=== PATIENT | female | born 1990 | race Caucasian/White ===

== ENCOUNTER → 2018-08-04 10:58 | Outpatient (CLI) | payer OTHER, SELFPAY ==
[2018-08-04 12:47] LABS: Influenza A and B by PCR Rapid Negative (Negative)
== END ==
PROVIDERS: PCP Nurse Practitioner; Visit Provider Physician Assistant
DX: R05 Cough (principal); R07.0 Pain in throat
CPT/HCPCS: 87070; 87400

== ENCOUNTER 2020-11-29 15:44 | Outpatient (RCR) | payer OTHER, SELFPAY ==
--- NOTE | 2020-11-29 16:45 | PT.OPPOC ---
Physical, Occupational & Speech Therapy At [facility] Current Diagnoses Stiffness of other specified joint, not elsewhere classified (11/29/20) Cervicalgia (11/29/20) Visit Care Team Role Provider Type MALAIKA Michael Attending Provider Non-Staff Primary Care Provider Referring Provider Specialty: Medical Address: [address] [place] [address], [address], [place], [address] Email: Plan Of Care PT-OP-T Assessment and Plan Start: 11/29/20 17:41 Freq: Status: Active Protocol: Document 11/29/20 16:00 DCW (Rec: 11/30/20 10:37 DCW [id number]) Physical Therapy Assessment Rehab Potential Rehabilitation Potential Good Evaluation Complexity Number of Personal Factors/Comorbidities 1-2 Number of Body Systems Impaired 3 Clinical Presentation at Evaluation Stable Impairments Impairments Activity Tolerance,Functional Activities,Functional Mobility ,Pain,ROM,Soft Tissue Mobility ,Strength,Tone Goals Three Impairment Pt limited to 2/25 miles on Elliptical before severe pain [facility]cf Goal (LTG) Pt to tolerate 5 miles on elliptical without increased pain to demonstrate increased activity tolerance and improve ability to participate in her usual physical activities LTG Duration 01/30/21 Two Impairment Pt cervical ROM limited in R lateral flexion and 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 and left rotation to 60? to improve ability to move head while driving and looking for oncoming traffic. LTG Duration 01/30/21 One Impairment Pt does not have an appropriate home exercise program Short Term Goal (STG) Pt to be independent and compliant with an appropriate HEP STG Duration 12/30/20 Assessment Summary Assessment Pt presents with severe tone throughout left cervical musculature, a rotated C4, frequent headaches, decreased cervical mobility, and limited activity tolerance. Pt has had multiple injuries over her lifetime to her cervical spine, and appears to just have a large amount of protective spasming/increased tone causing these headaches and limited mobility. Pt will likely benefit from skilled therapy focusing on STM, flexibility, strengthening, ROM, and increasing exercise tolerance. Physical Therapy Plan Frequency and Duration Frequency of Treatment 1-2x/week Duration of Treatment Two months Plan of Care Start Date 11/29/20 Plan of Care End Date 01/30/21 Therapeutic Interventions Therapeutic Interventions Home Exercise Program,Joint Mobilizations,Manual Therapy, Patient/Caregiver Education, Self-Care/Home Management,Soft Tissue Mobilization,Taping, Therapeutic Activities, Therapeutic Exercises Modalities Cold Pack/Ice Massage,Electric Stimulation,Hot Packs, Ultrasound Next Visit Focus/Plan Next Note Type Treatment Note Next Visit Plan STM, joint mobs, flexibility Plan of Care Dates Plan of Care Start Date 11/29/20 Plan of Care End Date 01/30/21 Electronically Signed by: Joe Solis, PT 11/30/20 1038 Please Sign and Return: I have reviewed this Plan of Care and certify that the skilled therapy services above are required to meet the patient?s needs. Physician Signature Date Printed Name and Credentials Clinical Instructor Signature Printed Name and Credentials
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
== END 2021-03-24 13:19 ==
LOC: PHYS 15:44
PROVIDERS: PCP Nurse Practitioner Family; Referring Provider Nurse Practitioner Family; Visit Provider Nurse Practitioner Family
DX: M54.2 Cervicalgia (principal); M25.69 Stiffness of other specified joint, not elsewhere classified
CPT/HCPCS: 97140; 97161

== ENCOUNTER → 2022-11-03 11:22 | Outpatient (CLI) | payer OTHER, SELFPAY ==
[2022-11-04 14:48] LABS: Candida species Negative (Negative); Gardnerella vaginalis Negative (Negative); Trichomoas vaginalis Negative (Negative)
== END ==
PROVIDERS: PCP Nurse Practitioner Family; Visit Provider Obstetrics & Gynecology
DX: N89.8 Other specified noninflammatory disorders of vagina (principal); R10.2 Pelvic and perineal pain
CPT/HCPCS: 87480; 87510; 87660

== ENCOUNTER 2023-03-19 06:36 | Day surgery (SDC) | payer OTHER, SELFPAY ==
[2023-03-13 10:48] VITALS: BMI 33.1
[2023-03-19] VITALS (21 sets, daily range): BP systolic 84–126; BP diastolic 52–90; PULSE 46–97; RESP 9–23; TEMP 35.7–37; O2SAT 92–100; BMI 33.1
--- NOTE | 2023-03-19 | PATH_ITS ---
[facility] Accession Number: [id number] No. of containers..02 Tissue . 01 Material submitted: . PART A: uterus - UTERUS PART B: fallopian tube - BILATERAL FALLOPIAN TUBES . 01 Diagnosis: A. Uterus, Hysterectomy: Cervix: A few small nabothian cysts. Endometrium: Disordered proliferative. Myometrium: Adenomyosis and multiple leiomyomata. Serosa: No significant pathologic abnormalities. . B. Fallopian Tubes, Bilateral Salpingectomy: Two fimbriated fallopian tubes without significant pathologic abnormality. [facility]V 03/27/2023 1551 Local . 01 Electronically signed: . Kalpana Tabares MD, Pathologist NPI- [id number] . 01 Gross description: . A. The specimen is received in formalin labeled with the patient's name, , and uterus, and consists of an intact uterus (119 grams, 9.8 cm superior to inferior, 6.2 cm medial to lateral, and 4.4 cm anterior to posterior), with attached cervix (3.1 x 3.0 cm), with no adnexa present. . The ectocervix is pink-daigle, smooth, and glistening with a short purple suture located at approximately 11 o'clock with no designation per the requisition. The cervical os is slit like and measures 0.7 cm in diameter. The anterior paracervical margin is inked blue while the posterior paracervical margin is inked black. The serosa is villa-daigle and smooth with a small white well-circumscribed nodule measuring 0.3 cm in greatest dimension located on the right anterior cervix. The endocervical canal has a daigle herringbone mucosa and measures 2.8 cm in length. The endometrial cavity measures 2.7 cm from cornu to cornu, and 5.5 cm in length with red-daigle, velvety endometrium that averages 0.1 cm thick. The myometrium is red-daigle and trabecular measuring up to 2.1 cm thick with multiple small well-circumscribed, white, whorled nodules measuring up to 0.4 cm in greatest dimension with no hemorrhage or necrosis identified. . Hr Receptionist sections are submitted as follows: A1: Anterior cervix. A2: Posterior cervix. A3: Anterior full thickness section. A4: Posterior full thickness section and nodule. A5: Serosa. A6: Nodules. . B. Received in formalin labeled with the patient's name, , and bilateral fallopian tubes, and consists of two unoriented, fimbriated fallopian tubes measuring 3.9 x 0.6 cm and 4.3 x 0.7 cm. Both tubes have violaceous smooth serosa with no cystic structures identified. Sectioning reveals unremarkable stellate lumen. . Hr Receptionist sections to include one-half of bisected fimbriae and cross-sections are submitted as follows: B1: Longer fallopian tube. B2: [place] fallopian tube. ([id number]) /[facility] 03/20/2023 0933 Local . 01 Pathologist provided ICD-10: D25.9 . 01 CPT . 741399, [id number] Specimen Comment: A courtesy copy of this report has been sent to [phone] Performed at: 01 [facility] [address] [place] [address], [place], [place] [id number] MD Chaz Wick MD Phone: [phone]
[2023-03-19] MEDS: LACTATED RINGERS 1,000 ML 42 ML IV ×2 (07:13→10:30)
[2023-03-19] MEDS: ACETAMINOPHEN 325 MG TABLET 975 MG PO (07:13)
--- NOTE | 2023-03-19 07:47 | PM.PREOP ---
Pre-operative Note COVID-19 COVID-19 status: Not tested Interval Note History & Physical reviewed/Exam performed by Physician: Yes Changes to H&P: No
[2023-03-19] MEDS: CEFAZOLIN 2 GM/100 ML PREMIX 100 ML IV (08:00)
--- NOTE | 2023-03-19 08:33 | SUR.OPER ---
Lithotomy on padded OR bed. [place] Pad Positioner under torso. Head on pillow, arms padded and tucked at sides. Legs secured in padded yellow fins stirrups.
[2023-03-19] MEDS: ROPIVACAINE 0.2% PF 2 MG/ML 10ML AMP 20 ML INJ (08:38)
[2023-03-19] MEDS: BUPIVACAINE 0.5% (PF) 30 ML, EPINEPHrine 0.15 MG INJ (08:39)
--- NOTE | 2023-03-19 09:53 | PM.GYNOP.1 ---
Operative Date/Time/Diagnoses Date of procedure: 03/19/23 Time of procedure: 08:10 Pre-op diagnosis: Menometrorrhagia Adenomyosis (presumptive diagnosis) Post-op diagnosis: other (Same as above; minimal pelvic peritoneal endometriosis) Procedure & Clinicians Procedure: Procedures Operation Date: 03/19/23 07:45 Actual Procedure Side Surgeon p Laparoscopic Total Hysterectomy with bilateral salpingectomy s Fulguration of pelvic peritoneal endometriosis Eric Ross MD Indications: Lucinda is a 32-year-old para 2, LMP starting 02/11/2023 who has been experiencing periods every 2 weeks for at least last 6 months. Attempts at regulation of her cycles with luteal phase Provera over the last few months have not been effective. Her bleeding continues to be extremely heavy, occurring twice monthly, associated with passage of large clots, disabling pelvic pain, and with each episode of bleeding significant right sided pelvic pain which has been consistently localized to the same area with every episode of bleeding. Patient has had a prior tubal ligation. Patient has used oral contraceptives in the past but had to discontinue use due to side-effects. Patient's similarly has tried Depo-Provera with the same result. The patient had a Mirena IUD placed in the past which became imbedded and required removal. Patient would like definitive therapy so that she can live her life without continuous disruption because of either pain and/or bleeding. Patient had a pelvic ultrasound performed at [facility] back in September 2022 which showed the uterus to be anteverted and normal in size measuring 9.2 x 4.4 x 5.6 cm. The myometrium was described as heterogenous. The endometrial stripe measures 18 mm in combined thickness with no abnormal vascularity seen along the endometrial stripe. The right ovary measures 3.3 x 2.7 x 3.0 cm with a calculated ovarian volume of 14.1 cc. Two simple appearing cysts can be seen within the right ovary that measure up to 1.5 cm in up to 1.8 cm respectively. The left ovary measures 3.2 x 2.1 x 2.5 cm with a calculated ovarian volume of 8.6 cm. The left ovary demonstrates a complex cyst that measures up to 1.9 cm. Less than 12 follicles were seen in each ovary and no adnexal masses were noted. There were no cystic lesions measuring greater than 3 cm. No pathological free abdominal or pelvic fluid was seen. Pap and EMbx performed in 02/2023 were negative/negative but inadequate for full assessment of the endometrium. The patient would appear to have run out of medical options for treatment of her menometrorrhagia which has resulted in anemia and significant disruption in her life. She is tried oral contraceptives, Depo-Provera, Mirena IUD, and cyclic oral progestin therapy all without success or benefit. Surgical options would include hysteroscopy with possible biopsies, dilation curettage of the uterus, and endometrial ablation. The heterogenous nature of the patient's myometrium however suggests the presence of adenomyosis and would likely contribute to her higher risk of failure to benefit the patient and also place the patient at higher risk of post endometrial ablation syndrome. Since the patient can not be guaranteed success from an ablation procedure, she does not wish to consider that but instead wishes to proceed with total laparoscopic hysterectomy and bilateral salpingectomy. An additional benefit of this approach would be due evaluate the pelvis for potential causes of her persistent right sided pelvic pain with episodes of bleeding. After consideration of all options the patient expresses a desire to move forward with TLH and bilateral salpingectomy. She presents today for her scheduled surgery. Surgeon: Eric Ross Medical Photographer: May Robertson Anesthesia Type: General Operative Notes Findings: Uterus is upper limits of normal size and diffusely enlarged. Consistency of the uterus is boggy. Both fallopian tubes demonstrates changes consistent with prior tubal ligation. Both ovaries are normal in size and appearance. The anterior cul-de-sac is unremarkable. In the posterior cul-de-sac there is a small area in the right ovarian fossa which is consistent with scarred endometriosis. There are also 3 small super facial implants in the posterior cul-de-sac on the left side lateral to the rectosigmoid. All of these areas of suspected endometriosis were destroyed with bipolar current. No other abnormalities were noted in the pelvis or abdomen as visualized laparoscopically. Closure Type: primary Specimen(s): left tube, right tube and uterus Applied: catheter Estimated blood loss (mL): 50 Blood products transfused: none Procedure in detail: With the patient in modified dorsal lithotomy position preparations were made by prepping and draping the patient in usual manner for vaginal surgery and insertion of Del Valle catheter. A pre-surgical time-out was then taken in accordance with [facility] policy. A bivalve speculum was then placed in the vagina and the cervix visualized. The anterior lip of the cervix was then grasped with a single-tooth tenaculum. The uterus was sounded to 9 cm, the endocervical canal dilated slightly, and a VCare uterine manipulator with a medium colpotomy cup was placed. The umbilicus was then infiltrated with 0.5% Marcaine with epinephrine. A 1 cm umbilical incision was made transversely and a Veress needle was used to insufflate the abdominal cavity with carbon dioxide. Once the abdomen was appropriately insufflated, a 5 mm trocar and sleeve were then placed through the umbilical incision. The scope was placed through the trocar and the initial assessment of the intra-abdominal contents carried out. A 2nd and 3rd 5 mm port was then placed 1st in the right mid quadrant from then the left mid quadrant by infiltration of the skin and subcutaneous tissues, a 1 cm transverse incision and insertion of the 5 mm bladeless port. Using a 3 puncture technique, the abdomen and pelvis were inspected laparoscopy and photographically documented. Uterus is mobilized with the VCare manipulator and attention turned to the left adnexa. The distal tube was then grasped and the fimbria varicose divided after coagulation with the PowerSeal device. The dissection was then carried out toward the cornua and the fallopian tube amputated. The tube was removed through a 5 mm port and dissection was then carried down using the PowerSeal device so as to divide the utero-ovarian ligament and the round ligament with blunt and sharp dissection of the broad down to the level of the uterine artery. The uterine artery was then skeletonized after development of a bladder flap, coagulated, and divided. Once hemostasis was assured on the left side attention was turned to the right and the tube, utero-ovarian ligament, round ligament, and broad ligament were dissected in a fashion exactly the same as it had been on the left. The right uterine artery was then visualized after skeletonization and coagulated and divided. The uterus was seen to gallito after coagulation of both your arteries and the cup was identified through the vaginal muscularis at its insertion with the body of the cervix. Circumferential excision of the vaginal cup was accomplished without difficulty using monopolar current and the uterus mobilized. The uterus was then removed through the vagina and the vaginal cuff closed [id number] with a series of 0 Vicryl [id number] stitches. Hemostasis was excellent, the abdomen was re-insufflated, and the pelvis inspected laparoscopically. The areas of suspected endometriosis lateral to the rectosigmoid on the left and in the ovarian fossa on the right were then destroyed with judicious use of bipolar current. The pelvis was inspected for any abnormality or bleeding, and the ureters were each seen to be peristalsing freely. With complete hemostasis assured, the pneumoperitoneum was vented and the ports removed. All of the 5 mm ports were then closed with 4-0 Monocryl on the skin using inverted interrupted sutures. Skin glue was placed and after the glue was dried, an appropriate dressing was applied. The case was then terminated, the patient awakened, and then transferred to PACU after having tolerated the procedure well. Complications: none Post-operative Condition: stable Disposition: PACU Plan for aftercare: Recovery in ambulatory surgery in discharge home later today if pain is under control and she is tolerating oral intake well.
[2023-03-19] MEDS: ONDANSETRON 4 MG/2 ML INJ IV (10:07)
[2023-03-19] MEDS: PROMETHAZINE 25 MG TABLET PO (10:14)
[2023-03-19] MEDS: SCOPOLAMINE 1 PATCH TOP (10:15)
[2023-03-19] MEDS: HYDROMORPHONE 1 MG INJ IV ×2 (10:18→10:26)
[2023-03-19] MEDS: METOCLOPRAMIDE 10 MG/2 ML INJ IV (10:35)
[2023-03-19] MEDS: OXYCODONE IR 5 MG TABLET PO ×2 (10:44→13:32)
--- NOTE | 2023-03-19 10:53 | SUR.PHASEI ---
Patient's HR in the 40-50s. BP and HR discussed with Dr. King. Order pending.
[2023-03-19] MEDS: GLYCOPYRROLATE 0.4 MG/2 ML VIAL 0.2 MG IV (10:56)
--- NOTE | 2023-03-19 11:07 | SUR.PHASEI ---
Report called to Lito in L&D.
--- NOTE | 2023-03-19 11:34 | SUR.PHASEI ---
Patient transferred to L&D. Report given to Lito. VS stable. Continuous pulse ox placed. IV and wright patent. Dressings CDI. Carolina pad CDI.
--- NOTE | 2023-03-19 12:00 | PC.NURSE ---
All three abdominal dressing clean dry and intact
--- NOTE | 2023-03-19 13:00 | PC.NURSE ---
all three abdominal dressing clean dry and intact
[2023-03-19] MEDS: ACETAMINOPHEN 325 MG TABLET 650 MG PO ×2 (13:16→19:10)
[2023-03-19] MEDS: LACTATED RINGERS 1,000 ML 100 ML IV (13:34)
--- NOTE | 2023-03-19 13:45 | PC.NURSE ---
1325: Pts pain/nausea uncontrolled w/ current medication regimen. New orders received from Dr. Ross to increase Oxycodone dose to 10mg Q 4hrs. Zofran increased to Q 4hrs from Q 6hrs. Pt is also complaining about the bed causing her more discomfort. Attempted to turn the bed into sleep mode, but unable to. Offered to power off the bed, but pt declined. Ice pack to pts abdomen. Call light w/in reach. Will reassess pain w/in the hour.
--- NOTE | 2023-03-19 15:00 | PC.NURSE ---
all three abdominal dressings clean dry and intact
[2023-03-19] MEDS: KETOROLAC 30 MG/ML VIAL IV ×2 (15:32→21:25)
--- NOTE | 2023-03-19 15:56 | PC.NURSE ---
Pt sitting up in bed. Tolerating clear liquids , pain decreased and better controlled with increased pain medication regimen.
--- NOTE | 2023-03-19 16:00 | PC.NURSE ---
all three abdominal dressing clean dry and intact
[2023-03-19] MEDS: OXYCODONE IR 10 MG TABLET PO ×2 (17:22→21:23)
--- NOTE | 2023-03-19 17:30 | PC.NURSE ---
got pt up to ambulate to bathroom, where wright catheter was removed. Scant amount of vaginal bleeding noted on jimmie pad. Pt is c/o gas pain and ambulated for a few minutes in room. She tolerated activity well. Helped pt back to bed, ice pack given for abd pain. Call light w/in reach
[2023-03-19] MEDS: SPIRONOLACTONE 25 MG TABLET 50 MG PO (21:24)
[2023-03-19] MEDS: lisinopriL 10 MG TABLET PO (21:24)
[2023-03-19] MEDS: TRAZODONE 50 MG TABLET PO (21:25)
[2023-03-19] MEDS: PROPRANOLOL 10 MG TABLET 20 MG PO (21:25)
[2023-03-20] MEDS: ACETAMINOPHEN 325 MG TABLET 650 MG PO ×2 (01:43→10:02)
[2023-03-20] MEDS: OXYCODONE IR 10 MG TABLET PO ×3 (01:44→10:02)
[2023-03-20 01:45] VITALS: BP 111/63; PULSE 101; RESP 22; TEMP 36.8; O2SAT 98
[2023-03-20 05:30] VITALS: BP 118/73; PULSE 88; RESP 18; TEMP 36.6; O2SAT 98
[2023-03-20] MEDS: KETOROLAC 30 MG/ML VIAL IV (05:53)
[2023-03-20] MEDS: PANTOPRAZOLE DR 20 MG TABLET PO (06:09)
[2023-03-20 06:37] LABS: Add Manual Diff / Slide Review NO; Basophils Absolute Auto 100 /uL (0-100); Basophils Percent Auto 0.7 % (0-2); Eosinophils Absolute Auto 0 /uL (0-450); Eosinophils Percent Auto 0.1 % (2-4); Hematocrit 33.5 % (36-46); Hemoglobin 11.1 g/dL (12.0-16.0); Lymphocytes Absolute Auto 1700 /uL (1100-4500); Mean Corpuscular HGB Conc 33.2 % (30-36); Mean Corpuscular Hemoglobin 29.2 PG (26-34); Mean Corpuscular Volume 87.8 fL (80-100); Monocytes Absolute Auto 1000 /uL (0-900); Monocytes Percent Auto 6.9 % (3-14); Neutrophils Absolute Auto 11500 /uL (1500-7000); Neutrophils Percent Auto 80.3 % (50-75); Platelet Count 452 X10^3/uL (150-400); Red Blood Cell Count 3.82 X10^6/uL (4.0-5.2); Red Cell Distribution Width 15.4 % (11.6-14.8); White Blood Cell Count 14.3 X10^3/uL (4.5-11.0)
--- NOTE | 2023-03-20 08:08 | PM.DS.1 ---
History of Present Illness History of Present Illness Date Patient Seen: 03/20/23 Time Patient Seen: 08:08 Chief complaint: Menometrorrhagia Narrative: Lucinda is a 32-year-old para 2, LMP starting 02/11/2023 who has been experiencing periods every 2 weeks for at least last 6 months. Attempts at regulation of her cycles with luteal phase Provera over the last few months have not been effective. Her bleeding continues to be extremely heavy, occurring twice monthly, associated with passage of large clots, disabling pelvic pain, and with each episode of bleeding significant right sided pelvic pain which has been consistently localized to the same area with every episode of bleeding. Patient has had a prior tubal ligation. Patient has used oral contraceptives in the past but had to discontinue use due to side-effects. Patient's similarly has tried Depo-Provera with the same result. The patient had a Mirena IUD placed in the past which became imbedded and required removal. Patient would like definitive therapy so that she can live her life without continuous disruption because of either pain and/or bleeding. Patient had a pelvic ultrasound performed at [facility] in September 2022 which showed the uterus to be anteverted and normal in size measuring 9.2 x 4.4 x 5.6 cm. The myometrium was described as heterogenous. The endometrial stripe measures 18 mm in combined thickness with no abnormal vascularity seen along the endometrial stripe. The right ovary measures 3.3 x 2.7 x 3.0 cm with a calculated ovarian volume of 14.1 cc. Two simple appearing cysts can be seen within the right ovary that measure up to 1.5 cm in up to 1.8 cm respectively. The left ovary measures 3.2 x 2.1 x 2.5 cm with a calculated ovarian volume of 8.6 cm. The left ovary demonstrates a complex cyst that measures up to 1.9 cm. Less than 12 follicles were seen in each ovary and no adnexal masses were noted. There were no cystic lesions measuring greater than 3 cm. No pathological free abdominal or pelvic fluid was seen. Pap and EMbx performed in 02/2023 were negative/negative but inadequate for full assessment of the endometrium. The patient would appear to have run out of medical options for treatment of her menometrorrhagia which has resulted in anemia and significant disruption in her life. She is tried oral contraceptives, Depo-Provera, Mirena IUD, and cyclic oral progestin therapy all without success or benefit. Surgical options would include hysteroscopy with possible biopsies, dilation curettage of the uterus, and endometrial ablation. The heterogenous nature of the patient's myometrium however suggests the presence of adenomyosis and would likely contribute to her higher risk of failure to benefit the patient and also place the patient at higher risk of post endometrial ablation syndrome. Since the patient can not be guaranteed success from an ablation procedure, she does not wish to consider that but instead wishes to proceed with total laparoscopic hysterectomy and bilateral salpingectomy. An additional benefit of this approach would be due evaluate the pelvis for potential causes of her persistent right sided pelvic pain with episodes of bleeding. After consideration of all options the patient expresses a desire to move forward with TLH and bilateral salpingectomy. She is admitted now for her scheduled surgery. Discharge Providers Provider Date of admission: 03/19/2023 Discharge Date: 03/20/23 Primary care physician: MALAIKA Alegre Discharge provider: Eric Ross MD Summary Hospital Course Discharge Diagnosis: Menometrorrhagia Adenomyosis (presumptive diagnosis) Minimal pelvic endometriosis Status post total laparoscopic hysterectomy with bilateral salpingectomy Hospital Course: Lucinda was admitted on the morning of 03/19/2023 and underwent an uneventful total laparoscopic hysterectomy with bilateral salpingectomy at that time. Full details of the procedure well summarized on my operative note of that date. Following surgery the patient has done extremely well with prompt return of bowel and bladder function, she is ambulating independently, tolerating regular diet, and her pain is well-controlled with oral pain medications. She will be discharged at this time to home in an afebrile normotensive condition after counseling regarding precautionary symptoms, limitations of activity, medications, and plans for follow-up which will be in 2 weeks. Medications at discharge will include resumption of all pre operative medications and oxycodone 5 mg every 4-6 hours as needed for pain, dispense 20 with no refills, and Cipro 500 mg p.o. b.i.d. x5 days for UTI prophylaxis following catheterization. She will also resume use of naproxen 500 mg p.o. every 8 hours as needed for additional pain relief. Status at Discharge Cognitive/behavioral status at discharge: oriented Functional status at discharge: independent ambulation Overall status at discharge: patient is progressing back to baseline Time Spent with Patient Time spent: Less than 30 minutes Exam Vital Signs (past 8 hours): - 03/20/23 01:45 03/20/23 05:30 Temperature 98.2 F 97.9 F Pulse Rate 101 H 88 Respiratory Rate 22 18 Blood Pressure 111/63 118/73 Pulse Oximetry 98 98 Oxygen Delivery Method Room Air Oxygen Flow Rate 2 Const General: cooperative and comfortable Nutritional Appearance: average body habitus Orientation: alert and oriented x3 HENMT Head: normal to inspection, atraumatic and abrasion Ears: hearing grossly normal bilaterally Face and sinus: face symmetric Eyes General: appearance normal, both eyes and all related structures Conjunctivae: conjunctivae normal Sclera: sclerae normal EOM: EOM intact bilaterally Neck Neck: normal visual inspection Resp Effort & Inspection: normal respiratory effort and able to speak in complete sentences Auscultation: clear to auscultation bilaterally Cardio Rate: regular rate Rhythm: regular rhythm Heart Sounds: S1 normal, S2 normal and no murmurs GI Inspection: normal to inspection and incision (Surgical dressings clean and dry) Palpation: soft, no hepatosplenomegaly and tender (Mild, diffuse postsurgical tenderness) External Female Exam: other (No significant bleeding noted) Extrem General: no calf tenderness Psych Appearance: grossly normal Mental Status: mental status grossly normal Speech and Movement: speech and movement normal Mood: congruent mood Affect: normal affect Attitude: cooperative Thought Process: normal Thought Content: normal Judgment: judgment good Objective Labs 03/20/23 06:22 Labs: Laboratory Results - last 24 hr 03/20/23 06:22 WBC 14.3 H RBC 3.82 L Hgb 11.1 L Hct 33.5 L MCV 87.8 MCH 29.2 MCHC 33.2 RDW 15.4 H Plt Count 452 H Neut % (Auto) 80.3 H Lymph % (Auto) 12.0 L Laporte % (Auto) 6.9 Eos % (Auto) 0.1 L Baso % (Auto) 0.7 Neut # (Auto) 68255 H Lymph # (Auto) 1700 [place] # (Auto) 1000 H Eos # (Auto) 0 Baso # (Auto) 100 PFSH Medical History (Updated 02/16/23 @ 17:23 by Eric Ross MD) Eczema Acne Rheumatoid arthritis Migraines Fractures Ankle pain Chicken pox (~1995) Anemia Painful menstrual periods Ovarian cyst Irregular menstrual cycle Hemorrhoid (~2010) Anxiety Heavy menstrual bleeding Surgical History (Updated 11/07/22 @ 20:54 by Kirsty Chavez) Anesthesia History of surgery (~2014) History of foot surgery (~2016) History of gastrointestinal surgery (~2011) History of abdominal surgery (~2012) Family History (Updated 11/07/22 @ 20:57 by Kirsty Chavez) Mother Arthritis Depression Anxiety Hypertension Hyperlipidemia Mental health problem Grandfather History of heart disease Grandmother Cancer History of heart disease Hyperlipidemia Hypertension Mental health problem Social History household members: spouse and children Smoking Status: Never smoker alcohol intake: current Discharge Assessment & Plan Assessment and Plan Assessment: Menometrorrhagia Adenomyosis (presumptive diagnosis) Minimal pelvic endometriosis Status post total laparoscopic hysterectomy with bilateral salpingectomy Plan of Treatment: Routine postoperative care with follow-up scheduled for 2 weeks postop. Discharge Plan Discharge Plan Patient Disposition: Home Provider Discharge Comment: Please review the written instructions you received when you were discharged from the hospital. Your follow-up appointment is scheduled for 2-3 weeks after your surgery and I look forward to seeing you then. If however in the meanwhile, you have any issues, concerns, or questions, please contact me either through the office phone at [phone], or via the patient portal. Discharge orders & Medications Discharge Orders: Discharge (Order); Ordered 03/20/23 Ordered By: Eric Ross Prescriptions: New oxycodone 5 mg Tablet 5 mg PO Q4-6H PRN (Reason: Pain, Moderate (4-6)) Qty: 20 0RF ciprofloxacin HCl [Cipro] 500 mg tablet 500 mg PO BID 5 Days Qty: 10 0RF Continued benzonatate 100 mg capsule 100 mg PO TID PRN (Reason: cough) Qty: 30 0RF codeine-guaifenesin [Cheratussin AC] 10-100 mg/5 mL liquid 10 ml PO Q4-6H PRN (Reason: cough limiting sleep) Qty: 120 0RF lisinopril 10 mg tablet 10 mg PO DAILY omeprazole 10 mg capsule,delayed release(DR/EC) 10 mg PO DAILY propranolol 40 mg tablet 20 mg PO BID trazodone 50 mg tablet 25 mg PO DAILY hydroxyzine HCl 25 mg tablet 25 mg PO BEDTIME spironolactone 50 mg tablet 50 mg PO DAILY doxycycline hyclate 20 mg tablet 20 mg PO BID loratadine [Claritin] 10 mg tablet 10 mg PO DAILY fexofenadine [Leatha Allergy] 180 mg tablet 180 mg PO DAILY ondansetron HCl 8 mg tablet 8 mg PO Q8H PRN (Reason: nausea and vomiting) Qty: 20 2RF naproxen 500 mg tablet 500 mg PO Q8H PRN (Reason: pain) Qty: 30 12RF Rx Instructions: For best effect, start medication 1-2 days prior to expected onset of period Follow up/Referrals: Nora Castillo ARNP [Primary Care Provider] - Eric Ross MD [Physician] - Diet/Activity/Treatments Diet: Diet as Tolerated Activity: As tolerated Other treatments: [id number] Tylenol and/or ibuprofen may be used for additional pain relief. [id number] stool softeners and/or MiraLax may be used as needed for constipation. Skin/Wound/Dressing Care Report to your healthcare provider any signs of infection, such as:: chills, fever, increased pain, unusual drainage and unusual redness Visit Report/Discharge Packet Instructions: DI for Hysterectomy, DI for Laparoscopy, DI for Prescription Opioid Use Stand Alone Forms: Surgery Discharge Print Language: Romanian Discharge Data Primary Care Provider: Nora Castillo Attending Provider: Eric Ross
[2023-03-20] MEDS: PROPRANOLOL 10 MG TABLET 20 MG PO (08:34)
[2023-03-20] MEDS: LORATADINE 10 MG TABLET PO (08:34)
[2023-03-20 08:41] VITALS: BP 121/72; PULSE 100; RESP 20; TEMP 36.6; O2SAT 98
[2023-03-20] MEDS: ONDANSETRON 4 MG ODT SL (10:18)
== END 2023-03-20 10:23 | disposition home or self-care (01) ==
LOC: OR 06:37 → AC 09:44 → LABOR 11:37
PROVIDERS: PCP Nurse Practitioner; Referring Provider Obstetrics & Gynecology; Visit Provider Obstetrics & Gynecology
PROC: 0UT94ZZ Resection of Uterus, Percutaneous Endoscopic Approach (ICD-10-PCS; CPT 58571; principal; 2023-03-19 07:45)
DX: N92.1 Excessive and frequent menstruation with irregular cycle (principal); N80.329 Endometriosis of the posterior cul-de-sac, unspecified depth; N88.8 Other specified noninflammatory disorders of cervix uteri; N80.03 Adenomyosis of the uterus; D25.9 Leiomyoma of uterus, unspecified
CPT/HCPCS: 58571; 58662; 36415; 36592; 85025; J0171; J0330; J0690; J1100; J1170; J1885; J2250; J2405; J2704; J2765; J2795; J3010

== ENCOUNTER 2023-03-23 12:55 | Emergency (ER) | payer OTHER, SELFPAY ==
[2023-03-23 12:59] VITALS: BP 152/99; PULSE 91; O2SAT 98
[2023-03-23 13:00] VITALS: PULSE 92; O2SAT 100
[2023-03-23 13:04] VITALS: BP 152/99; PULSE 88; RESP 16; TEMP 36.6; O2SAT 97; BMI 37.8
--- NOTE | 2023-03-23 13:13 | ED.SOB ---
HPI - SOB/Dyspnea <Shaheed Peck PA-C - Last Filed: 03/23/23 14:29> General Chief Complaint: Shortness of Breath/Dyspnea Stated Complaint: dr ref/SOB/Hurts to breathe/post hysterectomy Time Seen by Provider: 03/23/23 13:12 History of Present Illness HPI Narrative: This is a 32-year-old female presents emergency department due to 4 days of chest pain after having a hysterectomy 4 days ago. She states that she was told the hysterectomy went well without any complications. She states that the chest pain is worse with deep breathing. Denies any fevers, nausea, vomiting, abdominal pain, or any other concerning signs or symptoms. She has not had this in the past. She was not feel acutely short of breath but does state that it hurts more when she takes a deep breath. No cardiac history in the past. Related Data Home Medications Medication Instructions Recorded Confirmed doxycycline hyclate 20 mg tablet 20 mg PO BID 11/03/22 03/19/23 fexofenadine 180 mg tablet 180 mg PO DAILY 11/03/22 03/19/23 (Leatha Allergy) hydroxyzine HCl 25 mg tablet 25 mg PO BEDTIME 11/03/22 03/19/23 loratadine 10 mg tablet (Claritin) 10 mg PO DAILY 11/03/22 03/19/23 omeprazole 10 mg capsule,delayed 10 mg PO DAILY 11/03/22 03/19/23 release propranolol 40 mg tablet 20 mg PO BID 11/03/22 03/19/23 spironolactone 50 mg tablet 50 mg PO DAILY 11/03/22 03/19/23 trazodone 50 mg tablet 25 mg PO DAILY 11/03/22 03/19/23 lisinopril 10 mg tablet 10 mg PO DAILY 02/27/23 03/19/23 Previous Rx's Medication Instructions Recorded benzonatate 100 mg capsule 100 mg PO TID PRN cough #30 caps 08/04/18 codeine 10 mg-guaifenesin 100 mg/5 10 ml PO Q4-6H PRN cough limiting 08/04/18 mL oral liquid (Cheratussin AC) sleep #120 mL naproxen 500 mg tablet 500 mg PO Q8H PRN pain #30 tabs 02/16/23 ondansetron HCl 8 mg tablet 8 mg PO Q8H PRN nausea and 02/16/23 vomiting #20 tabs ciprofloxacin HCl 500 mg tablet 500 mg PO BID 5 days #10 tabs 03/20/23 (Cipro) oxycodone 5 mg tablet 5 mg PO Q4-6H PRN Pain, Moderate 03/20/23 (4-6) #20 tabs pantoprazole 20 mg tablet,delayed 20 mg PO BID #28 tabs 03/23/23 release Allergies Allergy/AdvReac Type Severity Reaction Status Date / Time adhesive tape AdvReac Mild Verified 03/19/23 06:50 Review of Systems <Shaheed Peck PA-C - Last Filed: 03/23/23 14:29> Review of Systems Narrative: GENERAL: Denies chills, fatigue, malaise, fever, sweats. HEENT: Denies sinus pain, ear pain, sore throat, difficulty swallowing, dizziness. RESPIRATORY: Reports chest pain, Denies dyspnea, cough, wheezing, hemoptysis, sputum. CARDIOVASCULAR: Denies , palpitations, orthopnea, edema, GASTROINTESTINAL: Denies nausea, vomiting, abdominal pain, diarrhea, constipation, melena. : Denies dysuria, frequency, incontinence, hematuria, urinary retention. MUSCULOSKELETAL: denies weakness, joint pain, or bony pain SKIN: Denies rash, skin lesions, or other NEUROLOGIC: Denies weakness, headache, numbness, change in speech, confusion, seizures, incoordination. PSYCHIATRIC: No concerning psychosocial issues. 12 point review of systems is negative except for those stated above Patient History <Shaheed Peck PA-C - Last Filed: 03/23/23 14:29> Medical History (Updated 03/23/23 @ 14:27 by Shaheed Peck PA-C) Eczema Acne Rheumatoid arthritis Migraines Fractures Ankle pain Chicken pox (~1995) Anemia Painful menstrual periods Ovarian cyst Irregular menstrual cycle Hemorrhoid (~2010) Anxiety Heavy menstrual bleeding Surgical History (Updated 11/07/22 @ 20:54 by Kirsty Chavez) Anesthesia History of surgery (~2014) History of foot surgery (~2016) History of gastrointestinal surgery (~2011) History of abdominal surgery (~2012) Family History (Updated 11/07/22 @ 20:57 by Kirsty Chavez) Mother Arthritis Depression Anxiety Hypertension Hyperlipidemia Mental health problem Grandfather History of heart disease Grandmother Cancer History of heart disease Hyperlipidemia Hypertension Mental health problem Social History household members: spouse and children Smoking Status: Never smoker alcohol intake: current Smoking Status: Never smoker alcohol intake frequency: holidays/special occasions only Substance Use Type: does not use Exam <Shaheed Peck PA-C - Last Filed: 03/23/23 14:29> Narrative Exam Narrative: GENERAL: Well-developed patient, in mild distress. HEAD: Atraumatic. Normocephalic. EYES: Pupils equal round and reactive. Extraocular motions intact. No scleral icterus. No injection or drainage. ENT: Nose without bleeding, purulent drainage. Throat without erythema, tonsillar hypertrophy or exudate. Airway patent. NECK: Trachea midline. Non tender CARDIOVASCULAR: Regular rate and rhythm without murmurs, gallops, or rubs. RESPIRATORY: Clear to auscultation. Breath sounds equal bilaterally. No wheezes, rales, or rhonchi. GASTROINTESTINAL: Abdomen soft, non-tender, nondistended. Surgical incisions with bandages in place, no spreading erythema or purulent drainage. EXTREMITIES: No edema or joint tenderness. BACK: Nontender without deformity or crepitance. No flank tenderness. NEURO: AOx3. SKIN: No rash or erythema of visible areas Initial Vital Signs Initial Vital Signs: Vital Signs Pulse Rate 91 H 03/23/23 12:59 Blood Pressure 152/99 H 03/23/23 12:59 Pulse Oximetry 98 03/23/23 12:59 <Cathie Brady MD - Last Filed: 03/23/23 15:48> Initial Vital Signs Initial Vital Signs: Vital Signs Pulse Rate 91 H 03/23/23 12:59 Blood Pressure 152/99 H 03/23/23 12:59 Pulse Oximetry 98 03/23/23 12:59 Course <Shaheed Peck PA-C - Last Filed: 03/23/23 14:29> Orders Ordered: ED Orders 03/23/23 13:15 Urinalysis and Microscopic Stat 03/23/23 13:20 XR chest 1V Stat Complete Blood Count AUTO DIFF Stat Comprehensive Metabolic Panel Stat Lipase Stat Troponin & CK Cardiac Panel Stat 03/23/23 13:21 CT angio chest PE protocol Stat 03/23/23 14:05 EKG-12 Lead Stat Discontinued Medications Acetaminophen (Acetaminophen 325 Mg Tablet) 650 mg PO NOW ONE Stop: 03/23/23 14:11 Last Admin: 03/23/23 14:18 Dose: 650 mg Documented By: CHRIS Sodium Chloride (Normal Saline 0.9%) 1,000 mls @ 150 mls/hr IV CONT FRANK Last Admin: 03/23/23 13:46 Dose: Not Given Documented By: CHRIS Vital Signs Vital signs: Vital Signs - 8 hr 03/23/23 12:59 03/23/23 12:59 03/23/23 13:00 Temperature Pulse Rate 91 H 92 H Respiratory Rate Blood Pressure 152/99 H Pulse Oximetry 98 100 Oxygen Delivery Method 03/23/23 13:04 03/23/23 13:14 03/23/23 13:14 Temperature 97.8 F Pulse Rate 88 87 Respiratory Rate 16 12 Blood Pressure 152/99 H 148/82 H Pulse Oximetry 97 96 Oxygen Delivery Method Room Air 03/23/23 13:30 03/23/23 13:30 03/23/23 14:00 Temperature Pulse Rate 84 85 Respiratory Rate 20 15 Blood Pressure 134/89 Pulse Oximetry 97 99 Oxygen Delivery Method <Cathie Brady MD - Last Filed: 03/23/23 15:48> Orders Ordered: ED Orders 03/23/23 13:15 Urinalysis and Microscopic Stat 03/23/23 13:20 XR chest 1V Stat Complete Blood Count AUTO DIFF Stat Comprehensive Metabolic Panel Stat Lipase Stat Troponin & CK Cardiac Panel Stat 03/23/23 13:21 CT angio chest PE protocol Stat 03/23/23 14:05 EKG-12 Lead Stat Discontinued Medications Acetaminophen (Acetaminophen 325 Mg Tablet) 650 mg PO NOW ONE Stop: 03/23/23 14:11 Last Admin: 03/23/23 14:18 Dose: 650 mg Documented By: CHRIS Sodium Chloride (Normal Saline 0.9%) 1,000 mls @ 150 mls/hr IV CONT FRANK Last Admin: 03/23/23 13:46 Dose: Not Given Documented By: CHRIS Vital Signs Vital signs: Vital Signs - 8 hr 03/23/23 12:59 03/23/23 12:59 03/23/23 13:00 Temperature Pulse Rate 91 H 92 H Respiratory Rate Blood Pressure 152/99 H Pulse Oximetry 98 100 Oxygen Delivery Method 03/23/23 13:04 03/23/23 13:14 03/23/23 13:14 Temperature 97.8 F Pulse Rate 88 87 Respiratory Rate 16 12 Blood Pressure 152/99 H 148/82 H Pulse Oximetry 97 96 Oxygen Delivery Method Room Air 03/23/23 13:30 03/23/23 13:30 03/23/23 14:00 Temperature Pulse Rate 84 85 Respiratory Rate 20 15 Blood Pressure 134/89 Pulse Oximetry 97 99 Oxygen Delivery Method MDM - SOB/Dyspnea <Shaheed Peck PA-C - Last Filed: 03/23/23 14:29> Lab Data 03/23/23 13:20 03/23/23 13:20 Labs: Lab Results 03/23/23 03/23/23 Range/Units 13:15 13:20 WBC 9.7 (4.5-11.0) X10^3/uL RBC 4.55 (4.0-5.2) X10^6/uL Hgb 13.4 (12.0-16.0) g/dL Hct 39.6 (36-46) % MCV 87.0 (80-100) fL MCH 29.4 (26-34) PG MCHC 33.8 (30-36) % RDW 15.3 H (11.6-14.8) % Plt Count 571 H (150-400) X10^3/uL Neut % (Auto) 73.4 (50-75) % Lymph % (Auto) 16.1 L (25-40) % Hitchcock % (Auto) 6.0 (3-14) % Eos % (Auto) 3.8 (2-4) % Baso % (Auto) 0.7 (0-2) % Neut # (Auto) 7100 H (7716-2711) /uL Lymph # (Auto) 1600 (5216-8272) /uL Hitchcock # (Auto) 600 (0-900) /uL Eos # (Auto) 400 (0-450) /uL Baso # (Auto) 100 (0-100) /uL Sodium 135 L (137-145) mmol/L Potassium 4.8 (3.4-5.1) mmol/L Chloride 100 (98-107) mmol/L Carbon Dioxide 28 (22-32) mmol/L BUN 14 (7-17) mg/dL Creatinine 0.76 (0.52-1.04) mg/dL Estimated GFR > 60 (>60) mL/min BUN/Creatinine Ratio 18.4 (6-22) Glucose 96 (70-100) mg/dL Calcium 10.1 (8.4-10.2) mg/dL Total Bilirubin 0.5 (0.2-1.3) mg/dL AST 29 (14-36) IU/L ALT 30 (<35) IU/L Alkaline Phosphatase 74 (38-126) U/L Total Creatine Kinase 47 (30-135) U/L Troponin I < 0.012 (0.01-0.034) ng/mL Total Protein 7.8 (6.3-8.2) g/dL Albumin 4.5 (3.5-5.0) g/dL Globulin 3.3 (1.7-4.1) g/dL Albumin/Globulin Ratio 1.4 (1.0-2.8) Lipase 41 (23-300) U/L Urine Color Yellow Urine Appearance Clear Urine pH 6.5 (4.5-8.0) Ur Specific [place] <=1.005 (1.000-1.035) Urine Protein Negative (Negative) Urine Glucose (UA) Negative (Negative) g/dL Urine Ketones Negative (NEGATIVE) Urine Occult Blood Negative (Negative) Urine Nitrate Negative (Negative) Urine Bilirubin Negative (NEGATIVE) Urine Urobilinogen 0.2 (0.2) E.U./dL Ur Leukocyte Esterase Negative (NEGATIVE) Urine RBC None seen (0-5/HPF) Urine WBC None seen (0-5/HPF) Ur Squamous Epith Cells 1-5 /hpf (0-5/HPF) Urine Bacteria None seen (None) Ur Culture Indicated? Cult not indicated Imaging Data CT scan - chest: Radiologist's Impression: [place] [address] CT Scan Report Signed Patient: Lucinda Mccracken MR#: [id number] : 1990 Acct:[id number] Age/Sex: 32 / F Date of Service: 03/23/23 Loc: ED Accession Number: [id number] Procedure: CT angio chest PE protocol Ordering Provider: Shaheed Peck P.A-C PROCEDURE: CT ANGIO CHEST PE PROTOCOL INDICATIONS: CP, hx of hysterectomy POD 4 TECHNIQUE: After the administration of intravenous contrast, 2 mm thick sections acquired from the pulmonary apices to the posterior costophrenic angles. 3-dimensional maximum intensity projection (MIP) coronal and sagittal reformats were then acquired through the thorax. For radiation dose reduction, the following was used: automated exposure control, adjustment of mA and/or kV according to patient size. COMPARISON: [facility], CR, XR CHEST 1V, 03/23/2023, 13:37. FINDINGS: Image quality: Excellent. Pulmonary arteries: Pulmonary arteries are normal in size, and demonstrate no intraluminal filling defects to suggest central pulmonary embolism. Lungs and pleura: Lungs are clear. No pleural effusions or pneumothorax. Central and peripheral airways are patent. Mediastinum: Heart size is normal, without pericardial effusion. No mediastinal or hilar adenopathy. Thoracic aorta is normal in caliber and enhancement. Esophagus is normal in caliber. There is a small hiatal hernia. Bones and chest wall: No suspicious bony lesions. Ribs and thoracic spine appear intact throughout. Thyroid gland demonstrates no significant abnormality. No axillary or supraclavicular adenopathy. Abdomen: There is a trace amount of intraperitoneal gas seen. Visualized upper abdominal solid organs appear normal in the early arterial phase of enhancement. IMPRESSION: Negative for pulmonary embolism. Clear lungs. A trace amount of intraperitoneal gas is seen, which is regarded to be within postoperative limits. Additional findings: Small hiatal hernia Dictated by: Karlos Drake M.D. on 03/23/2023 at 13:06 Approved by: Karlos Drake M.D. on 03/23/2023 at 13:07 Chest x-ray: Radiologist's Impression: [address] [address] XRay Report Signed Patient: Lucinda Mccracken MR#: [id number] : 1990 Acct:[id number] Age/Sex: 32 / F Date of Service: 03/23/23 Loc: ED Accession Number: [id number] Procedure: XR chest 1V Ordering Provider: Shaheed Peck P.A-C PROCEDURE: XR CHEST 1V INDICATIONS: chest pain TECHNIQUE: One view of the chest was acquired. COMPARISON: [facility], CT, CT ANGIO CHEST PE PROTOCOL, 03/23/2023, 13:46. FINDINGS: Surgical changes and devices: None. Lungs and pleura: Lungs are clear. No pleural effusions or pneumothorax. Mediastinum: Mediastinal contours appear normal. Heart size is normal. Bones and chest wall: No suspicious bony lesions. Overlying soft tissues appear unremarkable. IMPRESSION: Portable chest within normal limits for age. Dictated by: Karlos Drake M.D. on 03/23/2023 at 13:04 Approved by: Karlos Drake M.D. on 03/23/2023 at 13:06 ECG Data Interpretation: EKG is normal sinus rhythm rate 86 and free of any signs of ischemia or ectopy. No ST segmental elevation or depression. No T wave inversions MDM Narrative Medical decision making narrative: MDM * differential diagnosis includes but not limited to pulmonary embolism, atelectasis, pneumonia, ACS * Prior records reviewed: Patient recently has a hysterectomy due to reported periods every 2 weeks for the last 6 months. She was admitted 4 days ago and underwent an uneventful laparoscopic hysterectomy with bilateral salpingectomy. Patient was discharged with a oxycodone, ciprofloxacin, and naproxen for pain control. History of rheumatoid arthritis, anxiety. * My lab interpretation: CBC unremarkable, no leukocytosis. UA unremarkable. CMP showed very mild hyponatremia but patient exhibits no signs or symptoms of this. Lipase unremarkable. Troponin within normal limits. * My imgaing interpretation: Chest x-ray unremarkable. No evidence of pneumonia or other lung abnormalities. CT PE ordered which showed a small hiatal hernia but otherwise unremarkable. * Clinical Decision Rules/Scores evaluated: None * Independent discussions with: None ED Course: This is a 32-year-old female presents emergency department complaining of 4 days of chest pain after having a laparoscopic hysterectomy with her test automation architect. Per the test automation architect notes and hospital summary there were no complications with the procedure. Chest pain workup ordered which was all unremarkable. CT PE ordered as well which was negative for PE but did show a small hiatal hernia which maybe the cause of the patient's pain. We will prescribe oral proton pump inhibitor as well as recommendations for ibuprofen and Tylenol as recommended by her test automation architect. Suspect musculoskeletal in nature. Shared Decision Making: Discussed plan with the patient who is comfortable with the plan. Social Considerations: None Disposition: Discharged home <Cathie Brady MD - Last Filed: 03/23/23 15:48> Lab Data Labs: Lab Results 03/23/23 03/23/23 Range/Units 13:15 13:20 WBC 9.7 (4.5-11.0) X10^3/uL RBC 4.55 (4.0-5.2) X10^6/uL Hgb 13.4 (12.0-16.0) g/dL Hct 39.6 (36-46) % MCV 87.0 (80-100) fL MCH 29.4 (26-34) PG MCHC 33.8 (30-36) % RDW 15.3 H (11.6-14.8) % Plt Count 571 H (150-400) X10^3/uL Neut % (Auto) 73.4 (50-75) % Lymph % (Auto) 16.1 L (25-40) % Hitchcock % (Auto) 6.0 (3-14) % Eos % (Auto) 3.8 (2-4) % Baso % (Auto) 0.7 (0-2) % Neut # (Auto) 7100 H (7184-6819) /uL Lymph # (Auto) 1600 (0973-4436) /uL Hitchcock # (Auto) 600 (0-900) /uL Eos # (Auto) 400 (0-450) /uL Baso # (Auto) 100 (0-100) /uL Sodium 135 L (137-145) mmol/L Potassium 4.8 (3.4-5.1) mmol/L Chloride 100 (98-107) mmol/L Carbon Dioxide 28 (22-32) mmol/L BUN 14 (7-17) mg/dL Creatinine 0.76 (0.52-1.04) mg/dL Estimated GFR > 60 (>60) mL/min BUN/Creatinine Ratio 18.4 (6-22) Glucose 96 (70-100) mg/dL Calcium 10.1 (8.4-10.2) mg/dL Total Bilirubin 0.5 (0.2-1.3) mg/dL AST 29 (14-36) IU/L ALT 30 (<35) IU/L Alkaline Phosphatase 74 (38-126) U/L Total Creatine Kinase 47 (30-135) U/L Troponin I < 0.012 (0.01-0.034) ng/mL Total Protein 7.8 (6.3-8.2) g/dL Albumin 4.5 (3.5-5.0) g/dL Globulin 3.3 (1.7-4.1) g/dL Albumin/Globulin Ratio 1.4 (1.0-2.8) Lipase 41 (23-300) U/L Urine Color Yellow Urine Appearance Clear Urine pH 6.5 (4.5-8.0) Ur Specific [place] <=1.005 (1.000-1.035) Urine Protein Negative (Negative) Urine Glucose (UA) Negative (Negative) g/dL Urine Ketones Negative (NEGATIVE) Urine Occult Blood Negative (Negative) Urine Nitrate Negative (Negative) Urine Bilirubin Negative (NEGATIVE) Urine Urobilinogen 0.2 (0.2) E.U./dL Ur Leukocyte Esterase Negative (NEGATIVE) Urine RBC None seen (0-5/HPF) Urine WBC None seen (0-5/HPF) Ur Squamous Epith Cells 1-5 /hpf (0-5/HPF) Urine Bacteria None seen (None) Ur Culture Indicated? Cult not indicated Discharge Plan Departure Patient Disposition: Home Clinical Impression: Chest pain Activity Restrictions/Additional Instructions: Thank you for coming to the [facility] Emergency Department today. As we discussed your workup today was essentially unremarkable. Your EKG, lab work were not concerning for any kind of heart attack. Your chest x-ray showed no evidence for pneumonia or other lung abnormality. Your CT PE ruled out a blood clot in your lungs. It did show a small hiatal hernia. Please take the medication as prescribed it may help with your symptoms. Also recommend you take the pain medications recommended by the test automation architect. I hope you feel better soon. Please follow up with your primary care provider within a week if your symptoms continue. If you do not have a primary care provider please contact the [facility] Resource line at [phone]. They will ask some questions about your medical history and help you get set up with a provider in the community. Prescriptions: New pantoprazole 20 mg tablet,delayed release (DR/EC) 20 mg PO BID Qty: 28 0RF No Action benzonatate 100 mg capsule 100 mg PO TID PRN (Reason: cough) Qty: 30 0RF codeine-guaifenesin [Cheratussin AC] 10-100 mg/5 mL liquid 10 ml PO Q4-6H PRN (Reason: cough limiting sleep) Qty: 120 0RF lisinopril 10 mg tablet 10 mg PO DAILY omeprazole 10 mg capsule,delayed release(DR/EC) 10 mg PO DAILY propranolol 40 mg tablet 20 mg PO BID trazodone 50 mg tablet 25 mg PO DAILY hydroxyzine HCl 25 mg tablet 25 mg PO BEDTIME spironolactone 50 mg tablet 50 mg PO DAILY doxycycline hyclate 20 mg tablet 20 mg PO BID loratadine [Claritin] 10 mg tablet 10 mg PO DAILY fexofenadine [Leatha Allergy] 180 mg tablet 180 mg PO DAILY ondansetron HCl 8 mg tablet 8 mg PO Q8H PRN (Reason: nausea and vomiting) Qty: 20 2RF naproxen 500 mg tablet 500 mg PO Q8H PRN (Reason: pain) Qty: 30 12RF Rx Instructions: For best effect, start medication 1-2 days prior to expected onset of period oxycodone 5 mg Tablet 5 mg PO Q4-6H PRN (Reason: Pain, Moderate (4-6)) Qty: 20 0RF ciprofloxacin HCl [Cipro] 500 mg tablet 500 mg PO BID 5 Days Qty: 10 0RF Referrals: Nora Castillo ARNP [Primary Care Provider] - Stand Alone Forms: Patient Portal/API ED Sign-out <Cathie Brady MD - Last Filed: 03/23/23 15:48> Cosign ED Attending Cosignature Attestation: I did not see this patient. I was available all times for consultation.
[2023-03-23 13:14] VITALS: BP 148/82; PULSE 87; RESP 12; O2SAT 96
--- NOTE | 2023-03-23 13:20 | DI.RAD.S_ITS ---
PROCEDURE: XR CHEST 1V INDICATIONS: chest pain TECHNIQUE: One view of the chest was acquired. COMPARISON: [facility], CT, CT ANGIO CHEST PE PROTOCOL, 03/23/2023, 13:46. FINDINGS: Surgical changes and devices: None. Lungs and pleura: Lungs are clear. No pleural effusions or pneumothorax. Mediastinum: Mediastinal contours appear normal. Heart size is normal. Bones and chest wall: No suspicious bony lesions. Overlying soft tissues appear unremarkable. IMPRESSION: Portable chest within normal limits for age. Dictated by: Karlos Drake M.D. on 03/23/2023 at 13:04 Approved by: Karlos Drake M.D. on 03/23/2023 at 13:06
--- NOTE | 2023-03-23 13:21 | DI.CT.S_ITS ---
PROCEDURE: CT ANGIO CHEST PE PROTOCOL INDICATIONS: CP, hx of hysterectomy POD 4 TECHNIQUE: After the administration of intravenous contrast, 2 mm thick sections acquired from the pulmonary apices to the posterior costophrenic angles. 3-dimensional maximum intensity projection (MIP) coronal and sagittal reformats were then acquired through the thorax. For radiation dose reduction, the following was used: automated exposure control, adjustment of mA and/or kV according to patient size. COMPARISON: [facility], CR, XR CHEST 1V, 03/23/2023, 13:37. FINDINGS: Image quality: Excellent. Pulmonary arteries: Pulmonary arteries are normal in size, and demonstrate no intraluminal filling defects to suggest central pulmonary embolism. Lungs and pleura: Lungs are clear. No pleural effusions or pneumothorax. Central and peripheral airways are patent. Mediastinum: Heart size is normal, without pericardial effusion. No mediastinal or hilar adenopathy. Thoracic aorta is normal in caliber and enhancement. Esophagus is normal in caliber. There is a small hiatal hernia. Bones and chest wall: No suspicious bony lesions. Ribs and thoracic spine appear intact throughout. Thyroid gland demonstrates no significant abnormality. No axillary or supraclavicular adenopathy. Abdomen: There is a trace amount of intraperitoneal gas seen. Visualized upper abdominal solid organs appear normal in the early arterial phase of enhancement. IMPRESSION: Negative for pulmonary embolism. Clear lungs. A trace amount of intraperitoneal gas is seen, which is regarded to be within postoperative limits. Additional findings: Small hiatal hernia Dictated by: Karlos Drake M.D. on 03/23/2023 at 13:06 Approved by: Karlos Drake M.D. on 03/23/2023 at 13:07
[2023-03-23 13:30] VITALS: BP 134/89; PULSE 84; RESP 20; O2SAT 97
[2023-03-23 13:39] LABS: Add Manual Diff / Slide Review NO; Basophils Absolute Auto 100 /uL (0-100); Basophils Percent Auto 0.7 % (0-2); Eosinophils Absolute Auto 400 /uL (0-450); Eosinophils Percent Auto 3.8 % (2-4); Hematocrit 39.6 % (36-46); Hemoglobin 13.4 g/dL (12.0-16.0); Lymphocytes Absolute Auto 1600 /uL (1100-4500); Lymphocytes Percent Auto 16.1 % (25-40); Mean Corpuscular HGB Conc 33.8 % (30-36); Mean Corpuscular Hemoglobin 29.4 PG (26-34); Monocytes Absolute Auto 600 /uL (0-900); Neutrophils Absolute Auto 7100 /uL (1500-7000); Neutrophils Percent Auto 73.4 % (50-75); Platelet Count 571 X10^3/uL (150-400); Red Blood Cell Count 4.55 X10^6/uL (4.0-5.2); Red Cell Distribution Width 15.3 % (11.6-14.8); White Blood Cell Count 9.7 X10^3/uL (4.5-11.0)
[2023-03-23 13:42] LABS: Appearance Urine UA CLEAR; Bilirubin Urine UA NEGATIVE (NEGATIVE); Color Urine UA YELLOW; Glucose Urine UA NEGATIVE (Negative); Ketones Urine UA NEGATIVE (NEGATIVE); Leukocyte Esterase Urine UA NEGATIVE (NEGATIVE); Nitrite Urine UA NEGATIVE (Negative); Occult Blood Urine UA NEGATIVE (Negative); Protein Urine UA NEGATIVE (Negative); Specific Gravity Urine UA <=1.005 (1.000-1.035); Urobilinogen Urine UA 0.2 E.U./dL (0.2)
[2023-03-23 13:52] LABS: pH Urine UA 6.5 (4.5-8.0)
[2023-03-23 13:53] LABS: Bacteria Urine None Seen; Culture Indicated Urine Cult Not Indicated; RBC Urine None Seen (0-5/HPF); Squamous Epithelial Cell Urine 1-5 /HPF (0-5/HPF); WBC Urine None Seen (0-5/HPF)
[2023-03-23 13:53] LABS: Alanine Aminotransferase 30 IU/L (<35); Albumin 4.5 g/dL (3.5-5.0); Albumin Globulin Ratio 1.4 (1.0-2.8); Alkaline Phosphatase 74 U/L (38-126); Aspartate Aminotransferase 29 IU/L (14-36); BUN Creatinine Ratio 18.4 (6-22); Bilirubin Total 0.5 mg/dL (0.2-1.3); Blood Urea Nitrogen 14 mg/dL (7-17); Calcium 10.1 mg/dL (8.4-10.2); Carbon Dioxide 28 mmol/L (22-32); Chloride 100 mmol/L (98-107); Creatine Kinase 47 U/L (30-135); Estimated Glomerular Filt Rate > 60 mL/min (>60); Globulin 3.3 g/dL (1.7-4.1); Glucose 96 mg/dL (70-100); HEMOLYSIS 22 (0-50); Lipase 41 U/L (23-300); Potassium 4.8 mmol/L (3.4-5.1); Sodium 135 mmol/L (137-145); Total Protein 7.8 g/dL (6.3-8.2)
[2023-03-23 14:00] VITALS: PULSE 85; RESP 15; O2SAT 99
[2023-03-23 14:05] LABS: Troponin I < 0.012 ng/mL (0.01-0.034)
[2023-03-23] MEDS: ACETAMINOPHEN 325 MG TABLET 650 MG PO (14:18)
== END 2023-03-23 14:38 | disposition home or self-care (01) ==
PROVIDERS: Emergency Provider Physician Assistant Medical; PCP Nurse Practitioner
DX: R07.9 Chest pain, unspecified (principal); Z79.899 Other long term (current) drug therapy; Z90.710 Acquired absence of both cervix and uterus
CPT/HCPCS: 36415; 71045; 71275; 80053; 81001; 82550; 83690; 84484; 85025; 93005; 99284

== ENCOUNTER → 2023-04-30 06:39 | Outpatient (CLI) | payer OTHER, SELFPAY ==
--- NOTE | 2023-04-30 07:00 | DI.US.S_ITS ---
PROCEDURE: US PELVIC COMPLETE INDICATIONS: Left sided post-hysterectomy pain TECHNIQUE: Real-time scanning was performed of the pelvic organs, with image documentation. Additional endovaginal scanning was necessary due to incomplete visualization of the adnexal and endometrial structures by transabdominal scanning. Color and spectral Doppler of the ovaries was performed. COMPARISON: None. FINDINGS: Uterus: Surgically absent. Ovaries: The right ovary measures 4.0 x 2.6 x 2.8 cm, with a calculated ovarian volume of 15 cc. The left ovary measures 2.4 x 2.0 x 0.8 cm, with a calculated ovarian volume of 2 cc. Patent arterial waveforms. Less than 12 follicles can be seen in each ovary. No adnexal masses are seen. Right ovarian follicle containing an avascular, hypoechoic nodularity measuring 1.9 x 1.6 x 2.0 centimeter. Other: No pathologic free abdominal or pelvic fluid. IMPRESSION: Right ovarian follicle containing in a vascular, hypoechoic nodularity measuring 1.9 x 1.6 x 2.0 centimeters. This probably represents a hemorrhagic follicle in this age group. Given pelvic pain, recommend follow-up in 6-12 weeks. Normal arterial waveforms of the ovaries. Hysterectomy. We strive to produce accurate, complete, and clear reports of imaging services. To assist us in improving patient care, this report was composed using standard report templates and voice recognition software. Therefore, it may contain abnormal punctuation, insertions and/or omissions. Occasional wrong-word or sound-alike substitutions may occur. Though we review the report and make efforts to correct it, we do recommend that the report be read carefully in proper context to recognize any text inaccuracies. Dictated by: Anupam Paniagua M.D. on 04/30/2023 at 8:59 Approved by: Anupam Paniagua M.D. on 04/30/2023 at 9:02
== END ==
PROVIDERS: PCP Nurse Practitioner; Referring Provider Obstetrics & Gynecology; Visit Provider Obstetrics & Gynecology
DX: R10.9 Unspecified abdominal pain (principal); G89.18 Other acute postprocedural pain; Z90.710 Acquired absence of both cervix and uterus
CPT/HCPCS: 76830; 76856; 93975

== ENCOUNTER → 2023-11-11 13:49 | Outpatient (CLI) | payer OTHER, SELFPAY ==
[2023-11-11 14:33] LABS: Influenza A - CEPHEID Flu A NEGATIVE (NEGATIVE); Influenza B - CEPHEID Flu B NEGATIVE (NEGATIVE); Respiratory Syncytial Virus Negative (Negative)
[2023-11-11 14:50] LABS: COVID-19 CEPHEID 4-PLEX PCR Negative (Negative)
== END ==
PROVIDERS: PCP Nurse Practitioner; Visit Provider Physician Assistant Surgical
DX: R05.9 Cough, unspecified (principal)
CPT/HCPCS: 0241U

== ENCOUNTER → 2024-02-03 14:22 | Outpatient (CLI) | payer OTHER, SELFPAY ==
--- NOTE | 2024-02-03 14:24 | DI.RAD.S_ITS ---
PROCEDURE: XR ELBOW LT MIN 3V INDICATIONS: Left elbow injury TECHNIQUE: 3 views of the elbow were acquired. COMPARISON: None. FINDINGS: Bones: No fractures or dislocations. No suspicious bony lesions. Soft tissues: No elbow joint effusion. No suspicious soft tissue calcifications. IMPRESSION: No acute bony abnormality or significant joint effusion. Dictated by: Sourav Koenig M.D. on 02/03/2024 at 13:45 Approved by: Sourav Koenig M.D. on 02/03/2024 at 13:45
== END ==
LOC: RAD 14:24
PROVIDERS: PCP Nurse Practitioner; Referring Provider Physician Assistant Surgical; Visit Provider Physician Assistant Surgical
DX: M79.602 Pain in left arm (principal)
CPT/HCPCS: 73080